=== PATIENT | male | born 1990 | race Caucasian/White ===

== ENCOUNTER 2021-07-07 13:09 | Emergency (ER) | payer MEDICAID, OTHER, SELFPAY ==
[2021-07-07 14:56] VITALS: BP 140/91; PULSE 83; RESP 18; TEMP 37.3; O2SAT 98; BMI 24.4
[2021-07-07 17:38] LABS: Basophils Percent Auto 0.2 % (0-2); Eosinophils Absolute Auto 0.1 X10*3/uL (0.0-0.4); Eosinophils Percent Auto 0.9 % (0-4); Hematocrit 44.8 % (42.0-52.0); Imm Gran Abs Auto 0.01 X10*3/uL (0.00-0.03); Imm Gran Pct Auto 0.2 % (0.0-0.4); Lymphocytes Absolute Auto 0.9 X10*3/uL (1.2-4.9); Lymphocytes Percent Auto 16.7 % (20-40); MANUAL DIFF FLAG NO; Mean Corpuscular HGB Conc 33.5 g/dl (31.0-36.0); Mean Corpuscular Hemoglobin 29.3 pg (27.0-33.0); Mean Corpuscular Volume 87.5 fL (80.0-98.0); Mean Platelet Volume 8.8 fL (9.4-12.4); Monocytes Absolute Auto 0.5 X10*3/uL (0.1-1.2); Neutrophils Absolute Auto 3.9 x10*3/uL (2.0-8.3); Platelet Count 261 X10*3/uL (160-400); Red Blood Count 5.12 X10*6/uL (4.60-5.80); Red Cell Distribution Width 13.1 % (11.0-16.0); White Blood Count 5.3 X10*3/uL (4.8-10.8)
[2021-07-07 17:43] LABS: Appearance Urine CLEAR; Color Urine STRAW; Glucose Urine UA NEG (NEG); Leukocyte Esterase Urine NEG (NEG); Nitrite Urine NEG (NEG); PH 5.5 (5.0-8.0); Specific Gravity - Urine 1.015 (1.005-1.025); UACC Culture Trigger NO; Urine Blood TRACE (NEG); Urine Ketones NEG (NEG); Urine Protein NEG (NEG-TRACE)
[2021-07-07 17:52] LABS: Alanine Aminotransferase 48 U/L (0-40); Albumin Level 4.4 g/dL (3.5-5.0); Alkaline Phosphatase 74 U/L (39-117); Anion Gap 11 (12-20); Aspartate Amino Transferase 22 U/L (5-37); Bilirubin Total 0.4 mg/dL (0.0-1.0); Blood Urea Nitrogen 10 mg/dL (9-16); Calcium 9.1 mg/dL (8.4-10.2); Carbon Dioxide 29 mmol/L (22-29); Chloride 103 mmol/L (96-108); Estimated Glomerular Filt Rate > 60; Glucose Random 95 mg/dL (60-115); Potassium 4.4 mmol/L (3.3-5.1); Sodium 139 mmol/L (135-145); Total Protein 7.4 g/dL (6.5-8.0)
[2021-07-07 17:53] LABS: COVID-19 Test Negative (Negative); IDNOW Serial# 55D5AD1C
[2021-07-07 18:02] LABS: Hyaline Casts Urine 0-2 /LPF; RBC Urine 0 /HPF (0); Squamous Epithelial Cell Urine TRACE /LPF; WBC Urine 0 /HPF (0-4)
[2021-07-07 20:14] VITALS: BP 147/96; PULSE 77; RESP 18; TEMP 36.8; O2SAT 100
--- NOTE | 2021-07-07 20:16 | PC.NURSE ---
remains in WR. c/o abd distention and frequent watery diarrhea. q 20 minutes. moist mm. skin PWD.
[2021-07-07] MEDS: Ondansetron ODT 4 MG TAB.RAPDIS TRANSLINGU (20:19)
--- NOTE | 2021-07-07 20:57 | ED.NAVMDI ---
HPI - Nausea/Vomiting/Diarrhea General Chief complaint: Nausea/Vomiting/Diarrhea Stated complaint: vomiting Time Seen by Provider: 07/07/21 17:45 Source: patient Mode of arrival: ambulatory Limitations: no limitations History of Present Illness HPI Narrative: Patient had started 2 days ago since then patient has been having nausea vomiting and diarrhea multiple times with abdominal cramps, had subjective fever and chills no blood in the stool no urinary complaints Related Data Previous Rx's Medication Instructions Recorded dicyclomine 20 mg tablet 20 mg PO QID PRN #20 tab 07/07/21 ondansetron 4 mg disintegrating 4 mg PO Q6-8H PRN #7 tab 07/07/21 tablet Allergies Allergy/AdvReac Type Severity Reaction Status Date / Time No Known Allergies Allergy Verified 07/07/21 14:59 [No Known Allergies*] Review of Systems Review of Systems: Yes all other systems are reviewed and are negative [facility] Social History Social History Advance Directives: No Advance Directives Information Provided: No Advance Directives on File: No Physical Exam Vital Signs: Vital Signs: Last Vital Signs Temp 98.6 F 07/07/21 22:13 Pulse 60 07/07/21 22:13 Resp 16 07/07/21 22:13 BP 157/96 H 07/07/21 22:13 Pulse Ox 100 07/07/21 22:13 BMI result Body Mass Index 24.4 Appearance: Alert. Oriented X3. No acute distress. Eyes: PERRLA, No Nystagmus ENT: Pharynx normal. Oral Mucosa moist Neck: Normal inspection. Neck supple. CVS: Normal heart rate and rhythm. Pulses normal. Respiratory: No respiratory distress. Equal air entry bilateral, no wheezing/rales/rhonchi Abdomen: Soft diffuse abdominal tenderness no rebound tenderness or guarding Bowel sounds are present, no mass palpable, no CVA tenderness Skin: Skin warm and dry. Normal skin color. Normal skin turgor. Extremities: No lower extremity edema. No calf tenderness Neuro: Oriented X 3. MDM - Nausea/Vomiting/Diarrhea MDM Narrative Medical decision making narrative: Patient with stable labs likely had food poisoning with gastroenteritis no vomiting or diarrhea in the ER will discharge patient home on dicyclomine and Zofran Lab Data Attestation: I reviewed the patient's lab results. Result diagrams: 07/07/21 17:28 07/07/21 17:28 Labs: Lab Results 07/07/21 07/07/21 07/07/21 Range/Units 17:28 17:28 17:28 WBC 5.3 (4.8-10.8) X10*3/uL RBC 5.12 (4.60-5.80) X10*6/uL Hgb 15.0 (14.0-18.0) g/dl Hct 44.8 (42.0-52.0) % MCV 87.5 (80.0-98.0) fL MCH 29.3 (27.0-33.0) pg MCHC 33.5 (31.0-36.0) g/dl RDW 13.1 (11.0-16.0) % Plt Count 261 (160-400) X10*3/uL MPV 8.8 L (9.4-12.4) fL Immature Gran % (Auto) 0.2 (0.0-0.4) % Neut % (Auto) 73.0 (45-73) % Lymph % (Auto) 16.7 L (20-40) % [place] % (Auto) 9.0 (2-11) % Eos % (Auto) 0.9 (0-4) % Baso % (Auto) 0.2 (0-2) % Lymph # (Auto) 0.9 L (1.2-4.9) X10*3/uL [place] # (Auto) 0.5 (0.1-1.2) X10*3/uL Eos # (Auto) 0.1 (0.0-0.4) X10*3/uL Baso # (Auto) 0.0 (0.0-0.2) X10*3/uL Abs Immat Gran (auto) 0.01 (0.00-0.03) X10*3/uL Absolute Neuts (auto) 3.9 (2.0-8.3) x10*3/uL Absolute Nucleated RBC 0.000 (0.0-0.012) X10*3/uL Nucleated RBC % (auto) 0.0 (0.0-0.2) /100WBC Sodium 139 (135-145) mmol/L Potassium 4.4 (3.3-5.1) mmol/L Chloride 103 (96-108) mmol/L Carbon Dioxide 29 (22-29) mmol/L Anion Gap 11 L (12-20) BUN 10 (9-16) mg/dL Creatinine 1.16 (0.5-1.4) mg/dL Estim Creat Clear Calc 104.0 Estimated GFR > 60 Random Glucose 95 (60-115) mg/dL Calcium 9.1 (8.4-10.2) mg/dL Total Bilirubin 0.4 (0.0-1.0) mg/dL AST 22 (5-37) U/L ALT 48 H (0-40) U/L Alkaline Phosphatase 74 (39-117) U/L Total Protein 7.4 (6.5-8.0) g/dL Albumin 4.4 (3.5-5.0) g/dL Urine Color Urine Appearance Urine pH (5.0-8.0) Ur Specific [place] (1.005-1.025) Urine Protein (NEG-TRACE) MG/DL Urine Glucose (UA) (NEG) MG/DL Urine Ketones (NEG) MG/DL Urine Blood (NEG) Urine Nitrite (NEG) Ur Leukocyte Esterase (NEG) Urine RBC (0) /HPF Urine WBC (0-4) /HPF Ur Squamous Epith Cells /LPF Urine Bacteria /LPF Hyaline Casts /LPF COVID-19 (SERGIO) Negative (Negative) COVID-19 Clin Com See Note 07/07/21 Range/Units 17:32 WBC (4.8-10.8) X10*3/uL RBC (4.60-5.80) X10*6/uL Hgb (14.0-18.0) g/dl Hct (42.0-52.0) % MCV (80.0-98.0) fL MCH (27.0-33.0) pg MCHC (31.0-36.0) g/dl RDW (11.0-16.0) % Plt Count (160-400) X10*3/uL MPV (9.4-12.4) fL Immature Gran % (Auto) (0.0-0.4) % Neut % (Auto) (45-73) % Lymph % (Auto) (20-40) % [place] % (Auto) (2-11) % Eos % (Auto) (0-4) % Baso % (Auto) (0-2) % Lymph # (Auto) (1.2-4.9) X10*3/uL [place] # (Auto) (0.1-1.2) X10*3/uL Eos # (Auto) (0.0-0.4) X10*3/uL Baso # (Auto) (0.0-0.2) X10*3/uL Abs Immat Gran (auto) (0.00-0.03) X10*3/uL Absolute Neuts (auto) (2.0-8.3) x10*3/uL Absolute Nucleated RBC (0.0-0.012) X10*3/uL Nucleated RBC % (auto) (0.0-0.2) /100WBC Sodium (135-145) mmol/L Potassium (3.3-5.1) mmol/L Chloride (96-108) mmol/L Carbon Dioxide (22-29) mmol/L Anion Gap (12-20) BUN (9-16) mg/dL Creatinine (0.5-1.4) mg/dL Estim Creat Clear Calc Estimated GFR Random Glucose (60-115) mg/dL Calcium (8.4-10.2) mg/dL Total Bilirubin (0.0-1.0) mg/dL AST (5-37) U/L ALT (0-40) U/L Alkaline Phosphatase (39-117) U/L Total Protein (6.5-8.0) g/dL Albumin (3.5-5.0) g/dL Urine Color STRAW Urine Appearance CLEAR Urine pH 5.5 (5.0-8.0) Ur Specific [place] 1.015 (1.005-1.025) Urine Protein NEG (NEG-TRACE) MG/DL Urine Glucose (UA) NEG (NEG) MG/DL Urine Ketones NEG (NEG) MG/DL Urine Blood TRACE (NEG) Urine Nitrite NEG (NEG) Ur Leukocyte Esterase NEG (NEG) Urine RBC 0 (0) /HPF Urine WBC 0 (0-4) /HPF Ur Squamous Epith Cells TRACE /LPF Urine Bacteria NONE /LPF Hyaline Casts 0-2 /LPF COVID-19 (SERGIO) (Negative) COVID-19 Clin Com Discharge Plan Discharge Clinical Impression: Gastroenteritis Patient Disposition: Home, Self-Care Instructions: Gastroenteritis (ED) Additional Instructions: Drink plenty of fluids Take medication for the nausea and abdominal cramps Follow-up with the PCP if not better Prescriptions: New dicyclomine 20 mg tablet 20 mg PO QID PRN (Reason: abdominal pain) Qty: 20 0RF ondansetron 4 mg tablet,disintegrating 4 mg PO Q6-8H PRN (Reason: nausea and vomiting) Qty: 7 0RF Interventions: ED Discharge Assessment Last Done: 07/07/21 23:02 Discharge Date/Time: 07/07/21 23:15
[2021-07-07] MEDS: Dicyclomine HCl 10 MG CAPSULE 20 MG PO (21:17)
[2021-07-07] MEDS: Loperamide HCl 2 MG CAPSULE 4 MG PO (21:17)
[2021-07-07 22:13] VITALS: BP 157/96; PULSE 60; RESP 16; TEMP 37; O2SAT 100
== END 2021-07-07 23:15 | disposition home or self-care (01) ==
PROVIDERS: Emergency Provider Internal Medicine; PCP Internal Medicine
DX: K52.9 Noninfective gastroenteritis and colitis, unspecified (principal); R11.2 Nausea with vomiting, unspecified; Z20.822 Contact with and (suspected) exposure to COVID-19; Z79.899 Other long term (current) drug therapy
CPT/HCPCS: 80053; 81001; 85025; 87635; 99283

== ENCOUNTER 2023-06-25 14:04 | Outpatient (REF) | payer MEDICAID, OTHER, SELFPAY ==
[2023-06-25 16:26] LABS: Anion Gap 14 (12-20); Blood Urea Nitrogen 16 mg/dL (9-16); Calcium 9.7 mg/dL (8.4-10.2); Carbon Dioxide 28 mmol/L (22-29); Chloride 102 mmol/L (96-108); Estimated Glomerular Filt Rate > 60; Glucose Random 64 mg/dL (60-115); Potassium 3.9 mmol/L (3.3-5.1); Sodium 140 mmol/L (135-145)
[2023-06-26 14:07] LABS: CT PCR DETECTED (Not Detect.); NG PCR NOT DETECTED (Not Detect.)
== END 2023-06-25 14:05 | disposition home or self-care (01) ==
LOC: HO.HHCL 14:04
PROVIDERS: Visit Provider Emergency Medicine
DX: R03.0 Elevated blood-pressure reading, without diagnosis of hypertension (principal); Z86.19 Personal history of other infectious and parasitic diseases
CPT/HCPCS: 0353U; 36415; 80048; 87086

== ENCOUNTER 2023-07-06 10:52 | Outpatient (REF) | payer MEDICAID, OTHER, SELFPAY ==
[2023-07-06 14:07] LABS: Estimated Average Glucose 105 mg/dL; Hemoglobin A1c % 5.3 % (<6.0)
[2023-07-06 14:08] LABS: Alanine Aminotransferase 89 U/L (0-40); Albumin Level 4.4 g/dL (3.5-5.0); Alkaline Phosphatase 82 U/L (39-117); Anion Gap 12 (12-20); Aspartate Amino Transferase 39 U/L (5-37); Bilirubin Total 0.5 mg/dL (0.0-1.0); Blood Urea Nitrogen 12 mg/dL (9-16); Calcium 9.4 mg/dL (8.4-10.2); Carbon Dioxide 29 mmol/L (22-29); Chloride 102 mmol/L (96-108); Cholesterol 238 mg/dL (<200); Estimated Glomerular Filt Rate > 60; Glucose Random 93 mg/dL (60-115); HDL Cholesterol 55 mg/dL (>40); LDL Cholesterol Calculated 131 mg/dL (<100); Potassium 3.9 mmol/L (3.3-5.1); Sodium 139 mmol/L (135-145); Total Protein 7.9 g/dL (6.5-8.0); Triglycerides 262 mg/dL (<150)
[2023-07-06 14:11] LABS: TSH reflex Free T4 2.67 uIU/mL (0.32-4.0)
[2023-07-06 15:57] LABS: Reflex LDLD? No
== END 2023-07-06 10:53 | disposition home or self-care (01) ==
LOC: HO.HHCL 10:52
PROVIDERS: Visit Provider Family Medicine
DX: R03.0 Elevated blood-pressure reading, without diagnosis of hypertension (principal); E78.2 Mixed hyperlipidemia
CPT/HCPCS: 36415; 80053; 80061; 83036; 84443

== ENCOUNTER 2024-03-08 16:39 | Outpatient (REF) | payer MEDICAID, OTHER, SELFPAY ==
[2024-03-17 00:14] LABS: HPV MRNA E6/E7 Rectal NOT DETECTED
== END 2024-03-08 16:40 | disposition home or self-care (01) ==
LOC: HO.HHCLNP 16:39
PROVIDERS: Visit Provider Family Medicine
DX: Z72.51 High risk heterosexual behavior (principal)
CPT/HCPCS: 36415; 87624; 88112

== ENCOUNTER 2024-04-25 11:47 | Outpatient (REF) | payer MEDICAID, OTHER, SELFPAY ==
[2024-04-25 13:57] LABS: HPV 16,18/45 See PAP report
[2024-04-25 14:21] LABS: Estimated Average Glucose 108 mg/dL; Hemoglobin A1C 141.3086 umol/L; Hemoglobin A1c % 5.4 % (<6.0); Total Hemoglobin (HGBA1C) 4014.6583 umol/L
[2024-04-25 14:32] LABS: Alanine Aminotransferase 90 U/L (0-40); Albumin Level 4.4 g/dL (3.5-5.0); Alkaline Phosphatase 83 U/L (39-117); Anion Gap 10 (12-20); Aspartate Amino Transferase 42 U/L (5-37); Bilirubin Total 0.7 mg/dL (0.0-1.0); Blood Urea Nitrogen 13 mg/dL (9-16); Calcium 9.2 mg/dL (8.4-10.2); Carbon Dioxide 32 mmol/L (22-29); Chloride 102 mmol/L (96-108); Cholesterol 225 mg/dL (<200); Estimated Glomerular Filt Rate > 60; Glucose Random 97 mg/dL (60-115); HDL Cholesterol 54 mg/dL (>40); LDL Cholesterol Calculated 115 mg/dL (<100); Potassium 4.1 mmol/L (3.3-5.1); Sodium 140 mmol/L (135-145); Total Protein 7.7 g/dL (6.5-8.0); Triglycerides 280 mg/dL (<150)
[2024-04-25 14:49] LABS: TSH reflex Free T4 3.24 uIU/mL (0.32-4.0)
[2024-04-25 21:48] LABS: Reflex LDLD? No
[2024-04-25 22:31] LABS: Creatinine Urine 332.24 mg/dL; Microalbum/Creatinine Ratio Ur 12.6 ug/mg cr (<30)
[2024-04-26 13:23] LABS: HIV RNA PCR Qn Copies NOT DETECTED copies/mL (NOT DETECTED); HIV RNA PCR Qn Log Copies NOT DETECTED (NOT DETECTED)
[2024-04-26 14:33] LABS: HCV Log PCR <1.18 NOT DETECTED Log IU/mL (NOT DETECTED); HepC Viral Load <15 NOT DETECTED IU/mL (NOT DETECTED)
[2024-04-28 14:01] LABS: Syphilis Screen Nonreactive (Nonreactive)
[2024-04-28 14:35] LABS: HIV AB/AG Nonreactive (Nonreactive); HIV Num 1 0.05 S/CO (0.00-0.99); ~HepC Num1 0.11 S/CO (0.00-0.79); ~Hepatitis C Antibody Nonreactive (Nonreactive)
[2024-04-28 14:58] LABS: RPR Rapid Plasma Reagin NON-REACTIVE (NON-REACTIVE)
== END 2024-04-25 11:48 | disposition home or self-care (01) ==
LOC: HO.HHCL 11:47
PROVIDERS: Visit Provider Family Medicine
DX: R03.0 Elevated blood-pressure reading, without diagnosis of hypertension (principal); Z13.1 Encounter for screening for diabetes mellitus; Z11.3 Encounter for screening for infections with a predominantly sexual mode of transmission; Z83.49 Family history of other endocrine, nutritional and metabolic diseases; Z83.3 Family history of diabetes mellitus; Z72.51 High risk heterosexual behavior
CPT/HCPCS: 36415; 80053; 80061; 82043; 82570; 83036; 84443; 86592; 86780; 86803; 87389; 87522; 87536; 87624

== ENCOUNTER 2024-05-30 09:01 | Outpatient (REF) | payer OTHER, SELFPAY ==
--- NOTE | ~2024-05-30 | US_ITS ---
CLINICAL HISTORY: transaminitis US abdomen complete Comparison: None Findings: The visualized pancreas is normal. The aorta and inferior vena cava are normal caliber. The liver is normal in size and increased in echotexture with likely fatty sparing adjacent to the gallbladder. There is no intrahepatic bile duct dilatation. The common duct is 5 mm in diameter. The gallbladder is normal. There is no sonographic Cobb sign. The main portal vein is antegrade. The right kidney is 10.1 cm in length. The left kidney is 10.5 cm in length. The spleen is normal. No ascites. IMPRESSION: 1. increased hepatic echogenicity may indicate steatosis. This document has been electronically signed by: Henry Landaverde MD on 05/31/2024 10:44:55
--- OUTSIDE RECORDS SUMMARY | 2024-05-30 13:22 | XMS_ITS | Encounter Summary ---
Author Organization [employer] [facility] Address [address] 7[address] [place] [address] Care Team Providers Care Public Relations Supervisor Name Role Phone Alexandra Morgan MD Primary Care Provider [phone] Reason for Visit * Reason Comments Med Refill Encounter Details Date Type Department Care Team (Late st Contact Info) Description 01/22/2023 Refill [facility] [address] [place], [place] [phone] Alexandra Morgan MD [address] [place], [place] [phone] On pre-exposure prophylaxis for HIV Social History Tobacco Use Types Packs/Day Years Used Date Smoking Tobacco: Never Assessed Sex and Gender Information Value Date Recorded Sex Assigned at Male 03/03/2022 10:21 AM EDT Legal Sex Male 10:21 AM EDT Gender Identity Male 03/03/2022 10:21 AM EDT Sexual Orientation Lesbian or [place] 03/03/2022 10 :21 AM EDT documented as of this encounter Plan of Treatment Not on file documented as of this encounter Visit Diagnoses Diagnosis On pre-exposure prophylaxis for HIV documented in this encounter Care Teams Public Relations Supervisor Relationship Specialty Start Date End Date Alexandra Morgan MD [address] [place], [place] [phone] PCP - General Family Medicine 01/09/22 documented as of this encounter
--- OUTSIDE RECORDS SUMMARY | 2024-05-30 13:22 | XMS_ITS | Encounter Summary ---
Author Organization [employer] [facility] Address [address] [facility] [facility] [address]t [place] [address] Care Team Providers Care Talent Program Manager Name Role Phone Alexandra Morgan MD Primary Care Provider [phone] Reason for Visit * Reason Comments Med Refill Encounter Details Date Type Department Care Team (Late st Contact Info) Description 10/14/2022 Refill [facility] [address] [place], [place] [phone] Alexandra Morgan MD [address] [place], [place] [phone] On pre-exposure prophylaxis for HIV Social History [...] HIV documented in this encounter Care Teams Talent Program Manager Relationship Specialty Start Date End Date Alexandra Morgan MD [address] [place], [place] [phone] PCP - General Family Medicine 01/09/22 documented as of this encounter
--- OUTSIDE RECORDS SUMMARY | 2024-05-30 13:22 | XMS_ITS | Encounter Summary ---
Author Organization [employer] [facility] Address [address] [facility] [address]t [place] [address] Care Team Providers Care Chief Executive Or Managing Director Name Role Phone Alexandra Morgan MD Primary Care Provider [phone] Encounter Details Date Type Department Care Team (Latest Contact Info) Description 05/06/2018 Abstract [facility] CONVERSIONS Dental, Provider, DDS Social History Tobacco Use Types Packs/Day Years [...] documented as of this encounter Visit Diagnoses Not on filedocumented in this encounter Care Teams Chief Executive Or Managing Director Relationship Specialty Start Date End Date Alexandra Morgan MD [address] [place] [id number] PCP - General Family Medicine 01/09/22 documented as of this encounter
--- OUTSIDE RECORDS SUMMARY | 2024-05-30 13:23 | XMS_ITS | Encounter Summary ---
Author Organization [employer] Address [address] [facility] [address] [place] [address] Care Team Providers Care Assistant Professor Of English Name Role Phone Alexandra Morgan MD Primary Care Provider [phone] Encounter Details Date Type Department Care Team (Late st Contact Info) Description 11/05/2023 Orders Only [facility] [address] [place], [place] [phone] Alexandra Morgan MD [address] [place], [place] [phone] On pre-exposure prophylaxis for HIV Social History Tobacco Use Types Packs/Day Years Used Date Smoking Tobacco: Never Passive Smoke Exposure: Never Smokeless Tobacco: Never Housing Stability Answer Date Recorded What is your housing situation today? I have lara pierce 06/29/[address] you li ve. Do you have problems with any of the following? None of the above 06/29/2023 Food Insecurity Answer Date Recorded Within the past 12 months, y ou worried that your food would run out before you got money to buy more: Never True 06/29/2023 Within the past 12 months,th e food you bought just didn't last and you didn't have enough money to get more: Never True Transportation Answer Date Recorded In the past 12 months, has l ack of transportation kept you from medical appts, meetings, work or from getting things needed for daily living? No 06/29/2023 Utilities Answer Date Recorded In the past 12 months, has t he electric, gas, oil or water company threatened to shut off services in your home? No 06/29/2023 Sex and Gender Information Value Date Recorded [...] HIV documented in this encounter Care Teams Assistant Professor Of English Relationship Specialty Start Date End Date Alexandra Morgan MD [address] [place] [id number] PCP - General Family Medicine 01/09/22 documented as of this encounter
--- OUTSIDE RECORDS SUMMARY | 2024-05-30 13:23 | XMS_ITS | Encounter Summary ---
Author Organization [employer] [facility] Address [address] [facility] [address]t [place] [address] Care Team Providers Care Generator Technician Name Role Phone Alexandra Morgan MD Primary Care Provider [phone] Reason for Referral * Imaging (Routine) - Authorized Specialty Diagnoses / Procedures Referred By Shea pablo Referred To Contact Radiology Diagnoses Transaminitis Procedures US Abdomen Complete Alexandra Morgan MD [address] [place] [address] Phone: tel: fax: [address] Phone: tel: fax: Referral ID Status Reason Start Date Expiration Date V isits Requested Visits Authorized [id number] Authorized 04/28/2024 04/28/2025 1 1 Encounter Details Date Type Department Care Team (Late st Contact Info) Description 04/28/2024 Orders Only [facility] [address] [place], [place] [phone] Alexandra Morgan MD [address] [place], [place] [phone] Transaminitis (Primary Dx) Social History Tobacco Use Types Packs/Day Years Used Date Smoking Tobacco: Never Passive Smoke Exposure: Never Smokeless Tobacco: Never Alcohol Use Standard Drinks/Week Comments Never 0 (1 standard drink = 0.6 oz pur e alcohol) Housing Stability Answer Date Recorded What is [...] 10:21 AM EDT Sexual Orientation Lesbian or [place] 03/03/2022 10 :21 AM EDT documented as of this encounter Plan of Treatment Scheduled Orders Name Type Priority Associated Diagnoses Orde r Schedule Helicobacter pylori??Antigen, EIA, Stool Lab Routine Transaminitis Expected: 04/28/2024 (Approximate), Expires: 04/28/2025 US Abdomen Complete Imaging Routine Transaminitis Expected: 04/28/2024, Expires: 04/28/2025 documented as of this encounter Visit Diagnoses Diagnosis Transaminitis- Primary Nonspecific elevation of levels of transaminase or lactic acid dehydrogenase (LDH) documented in this encounter Care Teams Generator Technician Relationship Specialty Start Date End Date Alexandra Morgan MD [address] [place] [id number] PCP - General Family Medicine 01/09/22 documented as of this encounter
--- OUTSIDE RECORDS SUMMARY | 2024-05-30 13:23 | XMS_ITS | Encounter Summary ---
Author Organization [employer] Address [address] [place] [address] Care Team Providers Care State Highway Police Officer Name Role Phone Alexandra Morgan MD Primary Care Provider [phone] Encounter Details Date Type Department Care Team (Late st Contact Info) Description 01/28/2024 Orders Only [facility] [address] [place], [place] [phone] Alexandra Morgan MD [address] [place], [place] [phone] On pre-exposure prophylaxis for HIV (Primary Dx) Social History Tobacco Use Types [...] Visit Diagnoses Diagnosis On pre-exposure prophylaxis for HIV- Primary documented in this encounter Care Teams State [employer] Police Officer Relationship Specialty Start Date End Date Alexandra Morgan MD [address] [place] [id number] PCP - General Family Medicine 01/09/22 documented as of this encounter
--- OUTSIDE RECORDS SUMMARY | 2024-05-30 13:23 | XMS_ITS | Encounter Summary ---
Author Organization [employer] [facility] Address [address] [place] [address] Care Team Providers Care Clay Press Operator Name Role Phone Alexandra Morgan MD Primary Care Provider [phone] Encounter Details Date Type Department Care Team (Late st Contact Info) Description 05/11/2024 Telephone [facility] [address] [place], [place] [phone] Bo Manzo RN [address] [place] [address] Social History Tobacco Use Types Packs/Day Years [...] AM EDT documented as of this encounter Miscellaneous Notes * Telephone Encounter - Bo Manzo RN - 05/11/2024 9:36 AM EST To enter DPH STI results documented in this encounter Plan of Treatment Not on file documented as of this encounter Procedures Procedure Name Priority Date/Time Associated Diagnosis Comments CHLAMYDIA/GONORRHEA RECTAL SWAB ([place] [facility]) Routine 04/26/2024 CHLAMYDIA/GONORRHEA THROAT SWAB ([place] [facility]) Routine 04/26/2024 CHLAMYDIA/GONORRHEA - URINE ([place] [facility]) Routine 04/26/2024 documented in this encounter Results * Chlamydia/Gonorrhea, Urine ([place] [facility]) (04/26/2024) Chlamydia, Urine Negative Negative, Indeterminate, None Detected, Invalid, Specimen unsatisfactory for evaluation, Weakly Positive Gonorrhea, Urine Negative Negative, Indeterminate, None Detected, Invalid, Specimen unsatisfactory for evaluation, Weakly Positive Urine 04/26/2024 Historical Provider LAB URINE ORDERABLES Allyson l Result * Chlamydia/Gonorrhea, Rectal Swab ([place] [facility]) (04/26/2024) Chlamydia Rectal Swab Negative Negative, Indeterminate, None Detected, Invalid, Specimen unsatisfactory for evaluation Gonorrhea Rectal Swab Negative Negative, Indeterminate, None Detected, Invalid, Specimen unsatisfactory for evaluation Swab 04/26/2024 Historical Provider LAB MICROBIOLOGY - GENERA L ORDERABLES Final Result * Chlamydia/Gonorrhea Throat Swab ([place] [facility]) (04/26/2024) Chlamydia Throat Swab Negative Gonorrhea Throat Swab Negative Swab 04/26/2024 us Historical Provider LAB MICROBIOLOGY - GENERA L ORDERABLES Final Result documented in this encounter Visit Diagnoses Not on filedocumented in this encounter Care Teams Clay Press Operator Relationship Specialty Start Date End Date Alexandra Morgan MD [address] [place] [address] PCP - General Family Medicine 01/09/22 documented as of this encounter
--- OUTSIDE RECORDS SUMMARY | 2024-05-30 13:23 | XMS_ITS | Clinical Summary ---
Author Organization [facility] Address [address] [place] [address] Care Team Providers [employer] Customer Experience Advisor Name Role Phone Alexandra Morgan MD Primary Care Provider [phone] Allergies No known active allergies Medications Blood Pressure Monitoring (Omron 3 Series BP Monitor) device USE TO CHECK BLOOD PRESSURE DIRECTED 2 Active ibuprofen 400 MG tablet Take 1 tablet (400 mg) by mouth every 6 (six) hours if needed for moderate pain or fever for up to 30 doses. 30 tablet 4 Active doxycycline (Vibramycin) 100 MG capsule Take 2 pills within 24 hours (preferably 24 hours but no later than 72 hours) after unprotected (condomless or broken condom) sex. 50 capsule 1 4 Active Descovy 200-25 MG tabletIndication s:On pre-exposure prophylaxis for HIV TAKE 1 TABLET EVERY MORNING 30 tablet 2 4 Active Active Problems Problem Noted Date Diagnosed Date Elevated blood pressure reading 07/06/2023 Assessment & Plan (03/13/2024 6:51 PM EST): -Goal BP < 140/90 per JNC-8 and < 130/80 per ACC/AHA guideline (Treatment threshold >= 140/90) -Elevated, normal BP at home per pt -Continue working on lifestyle modifications -Recommended self-monitoring BP. -Schedule a BP check visit with our nurse. If home BP has been > 140/90 or office BP is > 145/95 again, then start olmesartan 10 mg daily, telmesartan 20 mg daily, valsartan 40 mg daily, or losartan 25 mg daily. - Given his family history, consider evaluating with US. Assessment & Plan (07/06/2023 2:58 PM EST): -Goal BP < 140/90 per JNC-8 and < 130/80 per ACC/AHA guideline (Treatment threshold >= 140/90) -Borderline range -Continue working on lifestyle modifications -Recommended self-monitoring BP. Advised to call if home BP is persistently > 140/90 so that we can start a medication -Follow up in 3-6 mo, sooner if any problem arises Family history of diabetes mellitus 07/06/2023 Family history of thyroid disease 07/06/2023 H/O chlamydia infection 06/25/2023 Assessment & Plan (03/13/2024 6:56 PM EST): - 06/25/23 Chlamydia positive; Gonorrhea negative - treated with doxycycline and given ceftriaxone - continue safer sexual practice - PEP discussion today # DoxyPEP, Initial Conversation Discussed role of Doxy PEP in preventing bacterial STIs. Conversation was started by: Patient meets risk based on: Assign Male At , >=18yo - plus - Shared decision making: Hx of chlamydia Patient agrees to utilize DoxyPEP. .Patient meets criteria for benefiting from Doxycycline for Post-Exposure Prophylaxis (DoxyPEP) for CT/GC/Syphilis. - Discussed data which supports prevention of chlamydia and syphilis, with limited data on Gonorrhea and ABX resistance. - Rx'ed Doxy PO 200mg once within 72 hours of sexual activity (#50 RF1) - Follow up in 3 months Assessment & Plan (07/06/2023 3:00 PM EST): - 06/25/23 Chlamydia positive; Gonorrhea negative - treated with doxycycline and given ceftriaxone - continue safer sexual practice Mixed hyperlipidemia 06/09/2022 Assessment & Plan (03/13/2024 6:54 PM EST): - 03/26/22 TC 281; TG 263; HDL 52; LDL 182 - continue working on lifestyle modifications Assessment & Plan (07/06/2023 3:00 PM EST): - 03/26/22 TC 281; TG 263; HDL 52; LDL 182 - continue working on lifestyle modifications Assessment & Plan (06/09/2022 9:01 AM EST): - 03/26/22 TC 281; TG 263; HDL 52; LDL 182 - continue working on lifestyle modifications On pre-exposure prophylaxis for HIV 06/09/2022 Assessment & Plan (03/13/2024 6:53 PM EST): - on Descovy - last renal function test normal in Mar 2022 - Chlamydia Dx and Tx in Jun 2023 - last STI screening test in Jan 2024 at [facility] negative - discussed about PEP Assessment & Plan (07/06/2023 3:01 PM EST): - on Descovy - last renal function test normal in Mar 2022 - Chlamydia Dx and Tx in Jun 2023 Assessment & Plan (06/09/2022 4:13 PM EST): - on Descovy - last STI screening negative in Dec 2021 - last renal function test normal in Mar 2022 Vitiligo 03/07/2013 Encounters Date Type Department Care Team Description 05/11/[address] [address] Bo Manzo, DANIEL 04/28/[address] [address] Nasreen Pinto, RN Results 04/28/2024 Orders Only [address] [address] Alexandra Morgan MD Transaminitis (Primary Dx) 04/28/2024 Refill [facility] [address] [place] [address] Alexandra Morgan MD On pre-exposure prophylaxis for HIV 04/25/2024 Orders Only [facility] [address] [place] [address] Alexandra Morgan MD 04/20/2024 Orders Only [facility] [address] [place] [address] Marissa Alva, DANIEL Screening for STD (sexually transmitted disease) 03/09/2024 Orders Only [address] [address] Alexandra Morgan MD 03/08/2024 2:30 PM EST Procedure Visit [facility] [address] [place] [address] Alexandra Morgan MD On pre-exposure prophylaxis for HIV (Primary Dx); Elevated blood pressure reading; High risk sexual behavior, unspecified type; Screening for diabetes mellitus; Dyslipidemia; Family history of diabetes mellitus; Family history of thyroid disease; Encounter for immunization; H/O chlamydia infection; Mixed hyperlipidemia; Dietary counseling; Exercise counseling; Overweight 03/08/2024 Orders Only [facility] [address] [place] [address] Alexandra Morgan MD 03/08/2024 Travel from Last 3 Months Immunizations Name Administration Dates Next Due HPV, Quadrivalent 03/28/2013,08/04/2011,07/01/19 12 Hep A, ped/adol, 2 dose 05/27/2010,10/29/2009 Hep B, Adolescent or Pediatric 03/04/2010,2009,10/29/2009 IPV 03/04/2010, 0,01/01/2010,2009 Influenza injectable quadriv alent preservative free 04/12/2015 Influenza, IIV3, injectable 10/29/2009 Influenza, seasonal, injecta ble, preservative free 03/08/2024 MMR 01/01/2010,10/29/2009 Pfizer Covid-19 Vaccine 12+ 03/08/2024, 4 TD (adult), 2 Lf tetanus tox oid, preservative free, adsorbed 05/27/2010,01/01/2010 Tdap 07/06/2023,05/12/2011,10/29/2009 Varicella 01/01/2010,10/29/2009 Family History Medical History Relation Name Comments Diabetes type II Mother Diabetes type II Other maternal aunt Relation Name Status Comments Mother Alive Other maternal aunt Social History Tobacco Use Types Packs/Day Years [...] or [place] 03/03/2022 10 :21 AM EDT Last Filed Vital Signs Vital Sign Reading Time Taken Comments Blood Pressure 150/88 03/08/2024 2:58 PM EST Pulse 88 03/08/2024 2:26 PM EST Temperature 36.3 ??C (97.3 ??F) 03/08/2024 2:26 PM ES T Respiratory Rate 16 03/08/2024 2:26 PM EST Oxygen Saturation 98% 03/08/2024 2:26 PM EST Inhaled Oxygen Concentration - - Weight 86.6 kg (191 lb) 03/08/2024 2:26 PM EST Height 182.9 cm (6') 03/08/2024 2:26 PM EST Body Mass Index 25.9 03/08/2024 2:26 PM EST Plan of Treatment Health Maintenance Due Date Last Done Comments Depression Screening 1990 Alcohol/Substance Use Screening 2004 Family Planning (PISQ) 11/13/2007 IPV Vaccines (4 of 4 - 5-dose series) 09/01/2010 03/04/2010, 01/31/2010, 01/01/2010, Additional history exists SDOH Screening 06/29/2024 06/29/2023 Tobacco Screening 03/13/2025 03/13/2024 DTaP/Tdap/Td Vaccines (5 - Td or Tdap) 07/05/2033 07/06/2023, 05/12/2011, 05/27/2010, Additional history exists Zoster Vaccines (1 of 2) 2042 RSV Patients and Patients Aged 60 years or older (1 - 1-dose 75+ series) 11/13/2067 Hepatitis B Vaccines Completed 03/04/2010, 01/01/2010, 10/29/2009 Hepatitis A Vaccines Completed 05/27/2010, 10/30/19 10 HPV Vaccines Completed 03/28/2013, 06/2011, 07/01/2011 COVID-19 Vaccine Completed 03/08/2024, 08/2023, 08/22/2020, Additional history exists Influenza Vaccine Completed 03/08/2024, , 10/29/2009 HIV Screening Completed 04/25/2024, 04/04, 09/30/2022, Additional history exists Hepatitis C Screening Completed 04/25/2024 , 04/25/2024, 09/30/2022, Additional history exists HIB Vaccines Aged Out No longer eligi ble based on patient's age to complete this topic Meningococcal Vaccine Aged Out No val dusty eligible based on patient's age to complete this topic Pneumococcal Vaccine: Pediatrics (0 to 5 Years) and At-Risk Patients (6 to 64 Years) Aged Out No longer eligible based on patient's age to complete this topic RSV under 20 months Aged Out No longe r eligible based on patient's age to complete this topic Rotavirus Vaccines Aged Out No longer eligible based on patient's age to complete this topic Procedures Procedure Name Priority Date/Time Associated Diagnosis Comments CHLAMYDIA/GONORRHEA - URINE ([place] DPH) Routine 04/26/2024 CHLAMYDIA/GONORRHEA RECTAL SWAB ([place] DPH) Routine 04/26/2024 CHLAMYDIA/GONORRHEA THROAT SWAB ([place] DPH) Routine 04/26/2024 RPR (MONITOR) W/REFL TITER Routine 04/25/2024 11:50 AM EST HIV 1/2 ANTIGEN/ANTIBODY, FOURTH GENERATION W/RFL Routine 04/25/2024 11:50 AM EST HEPATITIS C VIRAL RNA, QUANTITATIVE, REAL-TIME PCR Routine 04/25/2024 11:50 AM EST HEPATITIS C AB W/REFL TO HCV RNA, QN, PCR Routine 04/25/2024 11:50 AM EST Screening for STD (sexually transmitted disease) HIV 1 RNA, QUANTITATIVE REAL TIME PCR Routine 04/25/2024 11:50 AM EST Screening for STD (sexually transmitted disease) SYPHILIS SCREEN Routine 04/25/2024 11:50 AM EST Screening for STD (sexually transmitted disease) TSH W/REFLEX TO FT4 Routine 04/25/2024 1 1:50 AM EST Family history of thyroid disease HEMOGLOBIN A1C Routine 04/25/2024 11:50 AM EST High risk sexual behavior, unspecified type Family history of diabetes mellitus COMPREHENSIVE METABOLIC PANEL Routine 04/25/2024 11:50 AM EST Elevated blood pressure reading LIPID PANEL WITH REFLEX TO DIRECT LDL Routine 04/25/2024 11:50 AM EST Screening for diabetes mellitus ALBUMIN, RANDOM URINE W/CREATININE Routine 04/25/2024 11:48 AM EST Elevated blood pressure reading CYTOPATH-CELL ENHANCED Routine 1:17 PM EST HPV MRNA E6/E7,RECTAL W/ RFL GENOTYPES,16,18/45 Routine 03/08/2024 12:00 AM EST from Last 3 Months Results * Chlamydia/Gonorrhea, Rectal Swab ([place] DPH) (04/26/2024) Chlamydia Rectal Swab Negative Negative, Indeterminate, None Detected, Invalid, Specimen unsatisfactory for evaluation Gonorrhea Rectal Swab Negative Negative, Indeterminate, None Detected, Invalid, Specimen unsatisfactory for evaluation Swab 04/26/2024 Historical Provider MD LAB MICROBIOLOGY - GENERA L ORDERABLES Final Result * Chlamydia/Gonorrhea Throat Swab ([place] DPH) (04/26/2024) Chlamydia Throat Swab Negative Gonorrhea Throat Swab Negative Swab 04/26/2024 Historical Provider MD LAB MICROBIOLOGY - GENERA L ORDERABLES Final Result * Chlamydia/Gonorrhea, Urine ([place] DPH) (04/26/2024) Chlamydia, Urine Negative Negative, Indeterminate, None Detected, Invalid, Specimen unsatisfactory for evaluation, Weakly Positive Gonorrhea, Urine Negative Negative, Indeterminate, None Detected, Invalid, Specimen unsatisfactory for evaluation, Weakly Positive Urine 04/26/2024 Historical Provider LAB URINE ORDERABLES Allyson l Result * Syphilis Screen (04/25/2024 11:50 AM EST) Syphilis Screen Nonreactive Nonreactive [facility] Blood 04/25/2024 11:5 0 AM EST 04/25/2024 1:40 PM EST Alexandra Morgan MD LAB BLOOD ORDERABLES Final Resul t [facility] [address] [place] [phone] * TSH with Reflex to Free T4 (04/25/2024 11:50 AM EST) TSH reflex Free T4 3.24 0.32 - 4.0 uIU/mL [facility] Blood 04/25/2024 11:5 0 AM EST 04/25/2024 1:40 PM EST us Alexandra Morgan MD LAB BLOOD ORDERABLES Final Resul t Performing Organization Address [facility] Co de Phone Number [facility] [address] [place] [phone] * (ABNORMAL) Lipid Panel with Reflex to Direct LDL (04/25/2024 11:50 AM EST) Triglycerides 280(H) <150 mg/dL [facility] Comment:Desirable Triglyceri de: less than 150 mg/dLBorderline High Triglyceride 150-199 mg/dLHigh Triglyceride: 200-499 mg/dLVery High Triglyceride: greater than or equal to 5OO mg/dL Cholesterol 225(H) <200 mg/dL [facility] Comment:Desirable Cholestero l: less than 200 mg/dLBorderline High Cholesterol: 200-239 mg/dLHigh Cholesterol: greater than 239 mg/dL LDL Cholesterol Calculated 115(H) <100 mg/dL [facility] Comment:Desirable LDL: less than 100 mg/dLNear Optimal/Above Optimal LDL: 110- 129 mg/dLBorderline High LDL: 130-159 mg/dLHigh LDL: 160-189 mg/dLVery High LDL: greater than or equal to 190 mg/dL HDL Cholesterol 54 >40 mg/dL [facility] Comment:Desirable HDL: great er than 40 mg/dL Note: This HDL assay may give artificially low results in patients with liver disease. Blood 04/25/2024 11:5 0 AM EST 04/25/2024 1:40 PM EST us Alexandra Morgan MD LAB BLOOD ORDERABLES Final Resul t Performing Organization Address [facility]/ZIP Co de Phone Number [facility] [address] [place] [phone] * Hepatitis C Viral RNA, Quantitative, Real-Time PCR (04/25/2024 11:50 AM EST) Hepatitis C Viral Load <15 NOT DETECTED NOT DETECTED IU/mL [facility] HCV Log PCR <1.18 NOT DETECTED NOT DETECTED Log IU/mL [facility] Comment:For additional infor krish, please refer tohttp://education.TalentBin/faq/DLG36w7(This link is being provided for informational/educational purposes only.)THIS TEST WAS PERFORMED AT:[address] [place] [phone] SOLIS MD 04/25/2024 11:5 0 AM EST 04/25/2024 1:55 PM EST Alexandra Morgan MD LAB BLOOD ORDERABLES Final Resul t Performing Organization Address [facility]/ZIP Co de Phone Number [facility] [address] [place] [address] [phone] * Hepatitis C Antibody with Reflex to HCV, RNA, Quantitative, Real-Time PCR (04/25/2024 11:50 AM EST) Hepatitis C Antibody Nonreactive Nonreactive [facility] Comment:Antibodies to HCV no t detected; does not exclude early acuteHCV infection. Blood Venous blood specimen / Unknown 04/25/2024 11:50 AM EST 04/25/2024 1:40 PM EST Alexandra Morgan MD LAB BLOOD ORDERABLES Final Resul t Performing Organization Address [facility] Co de Phone Number [facility] [address] [place] [phone] * HIV-1 RNA, Quantitative, Real-Time PCR (04/25/2024 11:50 AM EST) HIV RNA PCR Qn Copies NOT DETECTED NOT DETECTED copies/mL [facility] HIV RNA PCR Qn Log Copies NOT DETECTED NOT DETECTED [facility] Comment:Result Units: Log co pies/mLThis test was performed using Real-Time Polymerase ChainReaction.Reportable Range: 20 copies/mL to 10,000,000 copies/mL(1.30 log copies/mL to 7.00 log copies/mL).THIS TEST WAS PERFORMED AT:[address] [place] [phone] SOLIS MD Blood Venous blood specimen / Unknown 04/25/2024 11:50 AM EST 04/25/2024 1:40 PM EST Alexandra Morgan MD LAB BLOOD ORDERABLES Final Resul t Performing Organization Address [facility] Co de Phone Number [facility] [address] [place] [phone] * RPR (Monitor) with Reflex to??Titer (04/25/2024 11:50 AM EST) RPR (Monitor) w/Refl Titer NON-REACTI VE NON-REACT ALEX [facility] Comment:THIS TEST WAS PERFOR MED AT:[facility] [address] [phone] SOLIS MD Rapid Plasma Reagin Ab Titer TNP [facility] 04/25/2024 11:5 0 AM EST 04/25/2024 1:55 PM EST Alexandra Morgan MD LAB BLOOD ORDERABLES Final Resul t Performing Organization Address [facility] Phone Number [facility] [address] [place] [phone] * HIV-1/2 Antigen and Antibodies, Fourth Generation, with Reflexes (04/25/2024 11:50 AM EST) HIV AB/AG Nonreactive Nonreactive [facility] Comment:HIV-1 p24 Ag and/or HIV-1/HIV-2 Ab not detected.A test result that is nonreactive does not exclude thepossibility of exposure to or infection with HIV-1 and/orHIV-2. Nonreactive results in this assay for individualswith prior exposure to HIV-1 and/or HIV-2 may be due toantigen and antibody levels that are below the limit ofdetection of this assay.The Hitpost HIV Ag/Ab Combo assay result andsupplemental assay results should be interpreted inconjunction with the patient's clinical presentation,history and other laboratory results. If the results areinconsistent with clinical evidence, additional testing issuggested to confirm the result. 04/25/2024 11:5 0 AM EST 04/25/2024 1:40 PM EST us Alexandra Morgan MD LAB BLOOD ORDERABLES Final Resul t Performing Organization Address [facility] Co de Phone Number [facility] [address] [place] [phone] * Hemoglobin A1c (04/25/2024 11:50 AM EST) Hemoglobin A1c 5.4 <6.0 % [facility] Comment:Hemoglobin A1C Refer ence Range Adults: 4.8 - 6.0 % Non diabetic: < 6.0 % Goal: < 7.0 %Additional Action Suggested: > 8.0 %Note: Hemoglobin A1c results are invalid for patients with abnormal amounts of HbF. Blood transfusions may impact the HbA1c concentration in the patient sample. Estimated Average Glucose 108 mg/dL [facility] Comment:eAG = Estimated ave rage glucose which is %A1C expressed asaverage glucose, using the formula of the P0G-VdbtfvdPuocvbn Glucose study (ADAG), Diabetes Care, Vol.31,#8,Dec. 2007 Blood Venous blood specimen / Unknown 04/25/2024 11:50 AM EST 04/25/2024 1:40 PM EST us Alexandra Morgan MD LAB BLOOD ORDERABLES Final Resul t Performing Organization Address [facility] Co de Phone Number [facility] [address] [place] [phone] * (ABNORMAL) Comprehensive Metabolic Panel (04/25/2024 11:50 AM EST) Sodium 140 135 - 145 mmol/L [facility] Potassium 4.1 3.3 - 5.1 mmol/L [facility] Chloride 102 96 - 108 mmol/L [facility] Carbon Dioxide 32(H) 22 - 29 mmol/L [facility] Anion Gap 10(L) 12 - 20 [facility] Urea Nitrogen (BUN) 13 9 - 16 mg/dL [facility] Creatinine, Serum 1.25 0.5 - 1.4 mg/dL [facility] Estimated Glomerular Filt Rate >60 [facility] Comment:Chronic Kidney Disea se: Estimated GFR < 60 mL/min/1.57e6Thghsb Kidney Disease: Estimated GFR < 15 mL/min/1.73m2 Glucose 97 60 - 115 mg/dL [facility] Calcium 9.2 8.4 - 10.2 mg/dL [facility] Bilirubin, Total 0.7 0.0 - 1.0 mg/dL [facility] Aspartate Amino Transferase 42(H) 5 - 37 U/L [facility] Alanine Aminotransferase 90(H) 0 - 40 U/L [facility] Total Protein 7.7 6.5 - 8.0 g/dL [facility] Albumin Level 4.4 3.5 - 5.0 g/dL [facility] Alkaline Phosphatase 83 39 - 117 U/L [facility] Blood Venous blood specimen / Unknown 04/25/2024 11:50 AM EST 04/25/2024 1:40 PM EST us Alexandra Morgan MD LAB BLOOD ORDERABLES Final Resul t [facility] [address] [place] [phone] * Albumin, Random Urine W/Creatinine (04/25/2024 11:48 AM EST) Creatinine, Urine 332.24 mg/dL [facility] Microalbumin Urine 42.0 mg/L [facility] Microalbum Creatinine Ratio Ur 12.6 <30 ug/mg cr [facility] Comment:Albumin/Creatinine R atio Reference Ranges: Normal: < 30 ug/mg creatinine Microalbuminuria: 30 - 300 ug/mg creatinineClinical Albuminuria: > 300 ug/mg creatinine Urine 04/25/2024 11:4 8 AM EST 04/25/2024 2:28 PM EST us Alexandra Morgan MD LAB URINE ORDERABLES Final Resul t [facility] [address] [place] [phone] * Cytopath-cell enhanced (03/09/2024 1:17 PM EST) 03/09/2024 1:17 PM EST 03/09/2024 1:20 PM EST Narrative [facility] - 03/11/2024 9:51 AM EST ----- ------- Name: Leonid Jimenes I ?Age/Sex: 33/M ? : 1990 Unit#: [id number] ?? Attend Dr: Alexandra Morgan MD ?Re03/08/24 ?Status: DEP REF ? [facility] Disch: ? ----- ------- SPEC : [id number] ? RECD: 03/09/24 ? STATUS: ??SOUT ? REQ NUM: [id number] ? ESTEFANI: 03/09/24 ? SUBM DR: Alexandra Morgan MD ? ENTERED: ??03/10/24 ?SP TYPE: Cytology ? OTHR : ? ORDERED: ??Cyto-enhanced ? Diagnosis ?? Descriptive Diagnosis: ? Negative for intraepithelial lesion/malignancy. ?? Specimen Adequacy: ? Glandular epithelium present; partially obscuring lubricant. ?? Comments: ?Benign appearing squamous cells with admixed anucleate forms are ?? present. ?Clinical History High risk sexual behavior, unspecified type ? Material Received ?? Rectal PAP ? Gross Description Received are 30 cc of CytoLyt fluid labelled anal pap from which a ThinPrep slide is prepared. ----- ------- Signed (signature on file) Neto Bravo MD 03/11/24 0951 ? ----- ------- ? END OF REPORT ? us Alexandra Morgan MD LAB CYTOLOGY ORDERABLES Final Re sult [facility] [address] [place] [phone] * HPV mRNA E6/E7, Rectal with Reflex to Genotypes, 16, 18/45 (03/08/2024 12:00 AM EST) HPV mRNA E6/E7, Rectal NOT DETECTED [facility] Comment:REFERENCE RANGE: NOT DETECTEDMethodology: Sales Service Supervisor-Mediated AmplificationThis assay detects E6/E7 viral messengerRNA(mRNA) from 14 high-risk HPV types (16, 18,31, 33, 35, 39, 45, 51, 52, 56, 58, 59, 66, 68).The analytical performance characteristics of thisassay have been determined by [employer]. Themodifications have not been cleared or approved bythe FDA. This assay has been validated pursuant to theIA regulations and is used for clinical purposes.For additional information, please refer tohttp://education.TalentBin/faq/HLW984q0(This link is being provided for informational/educational purposes only).THIS TEST WAS PERFORMED AT:[employer] [id number] [place] [phone] ALEXANDRA MD,PHD,KORINA HPV 16 RNA [facility] HPV 18/45 RNA [facility] 03/08/2024 03/09/2024 2:1 0 PM EST us Alexandra Morgan MD LAB CYTOLOGY ORDERABLES Final Re sult [facility] [address] [place] [phone] from Last 3 Months Insurance [facility] Care Teams [employer] Customer Experience Advisor Relationship Specialty Start Date End Date Alexandra Morgan MD [address] [place] [phone] PCP - General Family Medicine 01/09/22
--- OUTSIDE RECORDS SUMMARY | 2024-05-30 13:23 | XMS_ITS | Encounter Summary ---
Author Organization [employer] [facility] Address [address] [place] [address] Care Team Providers Care Anesthesia Associate Name Role Phone Alexandra Morgan MD Primary Care Provider [phone] Encounter Details Date Type Department Care Team (Late st Contact Info) Description 04/20/2024 Orders Only [facility] MEDICINE [address] [place] [address] Marissa Alva, DANIEL [address] [place] [address] Screening for STD (sexually transmitted disease) Social History Tobacco Use Types Packs/Day Years [...] Type Priority Associated Diagnoses Orde r Schedule HIV-1/2 Antigen and Antibodies, Fourth Generation, with Reflexes Lab Routine Screening for STD (sexually transmitted disease) Expected: 04/20/2024 (Approximate), Expires: 04/20/2025 RPR (Monitor) with Reflex to??Titer Lab Routine Screening for STD (sexually transmitted disease) Expected: 04/20/2024 (Approximate), Expires: 04/20/2025 Hepatitis C Viral RNA, Quantitative, Real-Time PCR Lab Routine Screening for STD (sexually transmitted disease) Expected: 04/20/2024 (Approximate), Expires: 04/20/2025 documented as of this encounter Visit Diagnoses Diagnosis Screening for STD (sexually transmitted disease) documented in this encounter Care Teams Anesthesia Associate Relationship Specialty Start Date End Date Alexandra Morgan MD [address] [place] [phone] PCP - General Family Medicine 01/09/22 documented as of this encounter
== END 2024-05-30 09:02 | disposition home or self-care (01) ==
LOC: HO.US 09:01
PROVIDERS: PCP Internal Medicine; Visit Provider Family Medicine
DX: R74.01 Elevation of levels of liver transaminase levels (principal)
CPT/HCPCS: 76700

== ENCOUNTER → 2024-05-30 09:06 | Outpatient (BNV) | payer OTHER, SELFPAY | PROVIDERS: PCP Internal Medicine; Visit Provider Radiology Diagnostic Radiology | DX: R74.01 Elevation of levels of liver transaminase levels (principal) | CPT/HCPCS: 76700 ==

== ENCOUNTER 2025-01-03 14:41 | Outpatient (REF) | payer OTHER, SELFPAY ==
--- OUTSIDE RECORDS SUMMARY | 2025-01-03 13:45 | XMS_ITS | Encounter Summary ---
Author Organization [employer] Address [address] [facility] [address] [place] [address] Care Team Providers Care Brake Coupler Dinkey Name Role Phone Alexandra Morgan MD Primary Care Provider [phone] Reason for Visit * Reason Comments Annual Exam Encounter Details Date Type Department Care Team (Late st Contact Info) Description 01/03/2025 1:45 PM EDT Office Visit [facility] MEDICINE [address] [place], [place] [phone] Alexandra Morgan MD [address] [place], [place] [phone] Routine general medical examination at a health care facility (Primary Dx); Mixed hyperlipidemia; Elevated blood pressure reading; Family history of thyroid disease; Family history of diabetes mellitus; On pre-exposure prophylaxis for HIV; Fatigue, unspecified type Social History Tobacco Use Types Packs/Day Years Used Date Smoking Tobacco: Never Passive Smoke Exposure: Never Smokeless Tobacco: Never Alcohol Use Standard Drinks/Week Comments Not Currently 0 (1 standard drink = 0.6 oz pur e alcohol) Depression Answer Date Recorded Patient Health Questionnaire-9 Score 13 01/03/2025 Patient Health Questionnaire-9 Score 13 01/03/2025 Last PHQ-9: Questionnaire Data Not on file 0 01/03/2025 Housing Stability Answer Date Recorded What is your housing situation today? I have lara pierce 12/27/[address] you li ve. Do you have problems with any of the following? None of the above 12/27/2024 Food Insecurity Answer Date Recorded Within the past 12 months, y ou worried that your food would run out before you got money to buy more: Never True 12/27/2024 Within the past 12 months,th e food you bought just didn't last and you didn't have enough money to get more: Never True Transportation Answer Date Recorded In the past 12 months, has l ack of transportation kept you from medical appts, meetings, work or from getting things needed for daily living? No 12/27/2024 Utilities Answer Date Recorded In the past 12 months, has t he electric, gas, oil or water company threatened to shut off services in your home? No 12/27/2024 Depression Answer Date Recorded Patient Health Questionnaire-2 Score 4 01/03/2025 Internet Access Answer Date Recorded Internet Access Q1 Yes 12/27/2024 Internet Access Q2 Not on file 12/27/2024 Sex and Gender Information Value Date Recorded Sex Assigned at Male 03/03/2022 10:21 AM EDT Legal Sex Male 10:21 AM EDT Gender Identity Male 03/03/2022 10:21 AM EDT Sexual Orientation Lesbian or [place] 03/03/2022 10 :21 AM EDT documented as of this encounter Last Filed Vital Signs Vital Sign Reading Time Taken Comments Blood Pressure 140/108 01/03/2025 2:19 PM EDT Pulse 95 01/03/2025 1:55 PM EDT Temperature 36.7 C (98 F) 01/03/2025 1:55 PM EDT Respiratory Rate 20 01/03/2025 1:55 PM EDT Oxygen Saturation 99% 01/03/2025 1:55 PM EDT Inhaled Oxygen Concentration - - Weight 84.3 kg (185 lb 12.8 oz) 01/03/2025 1:55 PM EDT Height 182.9 cm (6') 01/03/2025 1:55 PM EDT Body Mass Index 25.2 01/03/2025 1:55 PM EDT documented in this encounter Functional Status * Over the past 2 weeks, how often have you been bothered by any of the following problems? Question Answer Date of Assessment Author Patient Health Questionnaire -2 Score 4 01/03/2025 2:49 PM EDT Roya Garcia MA * Little interest or pleasure in doing things Answer Date of Assessment Author More than half the days 01/03/2025 2:49 PM EDT Jelena English MA * Feeling down, depressed, or hopeless Answer Date of Assessment Author More than half the days 01/03/2025 2:49 PM EDT Jelena English MA * Trouble falling or staying asleep, or sleeping too much Answer Date of Assessment Author More than half the days 01/03/2025 2:49 PM EDT Jelena English MA * Feeling tired or having little energy Answer Date of Assessment Author Several days 01/03/2025 2:49 PM EDT Jelena Garcia MA * Poor appetite or overeating Answer Date of Assessment Author More than half the days 01/03/2025 2:49 PM EDT Jelena English MA * Feeling bad about yourself - or that you are a failure or have let yourself or your family down Answer Date of Assessment Author Not at all 01/03/2025 2:49 PM EDT Jelena Garcia MA * Trouble concentrating on things, such as reading the newspaper or watching television Answer Date of Assessment Author More than half the days 01/03/2025 2:49 PM EDT Jelena English MA * Moving or speaking so slowly that other people could have noticed? Or the opposite - being so fidgety or restless that you have been moving around a lot more than usual. Answer Date of Assessment Author More than half the days 01/03/2025 2:49 PM JUDYT Jelena English MA * Thoughts that you would be better off or hurting yourself in some way Answer Date of Assessment Author Not at all 01/03/2025 2:49 PM Jelena Chaudhari MA * Patient Health Questionnaire-9 Score Answer Date of Assessment Author 13 01/03/2025 2:49 PM EDT Jelena Garcia MA * How difficult have these problems made it for you to do your work, take care of things at home, or get along with other people? Answer Date of Assessment Author Somewhat difficult 01/03/2025 2:49 PM JUDYT Jelena Concepcion MA * Over the last 2 weeks, how often have you been bothered by any of the following problems? Question Answer Date of Assessment Author Feeling nervous, anxious, or on edge 2 01/03/2025 2:50 PM EDT Roya Garcia MA Not being able to stop or control worrying 2 01/03/2025 2:50 PM EDT Roya Garcia MA Worrying too much about different things 2 01/03/2025 2:50 PM EDT Roya Garcia MA Trouble relaxing 2 01/03/2025 2:50 PM EDT Jelena English MA Being so restless that it is hard to sit still 2 01/03/2025 2:50 PM EDT Roya Garcia MA Becoming easily annoyed or irritable 2 01/03/2025 2:50 PM EDT Roya Garcia MA documented as of this encounter Plan of Treatment Upcoming Encounters Date Type Department Care Team (Late st Contact Info) Description 01/24/2025 9:30 AM EDT Clinical Support [facility] MEDICINE [address] [place] [address] Scheduled Orders Name Type Priority Associated Diagnoses Orde r Schedule CBC auto differential Lab Routine Fatigue, unspecified type Expected: 01/03/2025 (Approximate), Expires: 01/03/2026 Comprehensive Metabolic Panel Lab Routine Fatigue, unspecified type Expected: 01/03/2025 (Approximate), Expires: 01/03/2026 Lipid Panel with Reflex to Direct LDL Lab Routine Mixed hyperlipidemia Expected: 01/03/2025 (Approximate), Expires: 01/03/2026 TSH with Reflex to Free T4 Lab Routine Fatigue, unspecified type Expected: 01/03/2025 (Approximate), Expires: 01/03/2026 documented as of this encounter Visit Diagnoses Diagnosis Routine general medical examination at a health care facility- Primary Mixed hyperlipidemia Elevated blood pressure reading Elevated blood pressure reading without diagnosis of hypertension Family history of thyroid disease Family history of other endocrine and metabolic diseases Family history of diabetes mellitus On pre-exposure prophylaxis for HIV Fatigue, unspecified type documented in this encounter Additional Health Concerns Assessment Noted Time PHQ-9 Depression Total Score: 13 025 2:49 PM EDT documented as of this encounter Care Teams Brake Coupler Dinkey Relationship Specialty Start Date End Date Alexandra Morgan MD [address] [place] [address] PCP - General Family Medicine 01/09/22 documented as of this encounter
--- OUTSIDE RECORDS SUMMARY | 2025-01-03 15:57 | XMS_ITS | Encounter Summary ---
Author Organization [employer] [facility] Address [address] [place] [address] Care Team Providers Care General Agent Name Role Phone Alexandra Morgan MD Primary Care Provider [phone] Encounter Details Date Type Department Care Team (Late st Contact Info) Description 10/14/2024 Orders Only [facility] MEDICINE [address] [place], [place] [phone] Alexandra Morgan MD [address] [place], [place] [phone] Social History Tobacco Use Types Packs/Day Years [...] Description 01/24/2025 9:30 AM EDT Clinical Support [facility] MEDICINE [address] [place] [address] documented as of this encounter Visit Diagnoses Not on filedocumented in this encounter Care Teams General Agent Relationship Specialty Start Date End Date Alexandra Morgan MD [address] [place] [address] PCP - General Family Medicine 01/09/22 documented as of this encounter
--- OUTSIDE RECORDS SUMMARY | 2025-01-03 15:57 | XMS_ITS | Encounter Summary ---
Author Organization [employer] [facility] Address [address] [place] [address] Care Team Providers Care Horticultural Specialty Grower Field Name Role Phone Alexandra Morgan MD Primary Care Provider [phone] Encounter Details Date Type Department Care Team (Latest Contact Info) Description 05/06/2018 Abstract [facility] CONVERSIONS Dental, Provider, DDS Social History Tobacco [...] Description 01/24/2025 9:30 AM EDT Clinical Support [facility] MEDICINE [address] [place] [address] documented as of this encounter Visit Diagnoses Not on filedocumented in this encounter Care Teams Horticultural Specialty Grower Field Relationship Specialty Start Date End Date Alexandra Morgan MD [address] [place] [address] PCP - General Family Medicine 01/09/22 documented as of this encounter
--- OUTSIDE RECORDS SUMMARY | 2025-01-03 15:57 | XMS_ITS | Encounter Summary ---
Author Organization [employer] [facility] Address [address] [facility] 7t [place] [address] Care Team Providers Care Wire Weaver Name Role Phone Alexandra Morgan MD Primary Care Provider [phone] Reason for Visit * Reason Comments Med Refill Encounter Details Date Type Department Care Team (Late st Contact Info) Description 10/14/2022 Refill [facility] MEDICINE [address] [place] [phone] Alexandra Morgan MD [address] [place] [phone] On pre-exposure prophylaxis for HIV Social History [...] Description 01/24/2025 9:30 AM EDT Clinical Support [facility] MEDICINE [address] [place] [phone] documented as of this encounter Visit Diagnoses Diagnosis On pre-exposure prophylaxis for HIV documented in this encounter Care Teams Wire Weaver Relationship Specialty Start Date End Date Alexandra Morgan MD [address] [place] [phone] PCP - General Family Medicine 01/09/22 documented as of this encounter
--- OUTSIDE RECORDS SUMMARY | 2025-01-03 15:57 | XMS_ITS | Encounter Summary ---
Author Organization [employer] [facility] Address [address] [facility] 7t [place] [address] Care Team Providers Care Lock Tender Name Role Phone Alexandra Morgan MD Primary Care Provider [phone] Encounter Details Date Type Department Care Team (Latest Contact Info) Description 01/02/2025 Travel Social History Tobacco Use Types Packs/Day Years [...] Description 01/24/2025 9:30 AM EDT Clinical Support [facility] [address] [place] [address] documented as of this encounter Visit Diagnoses Not on filedocumented in this encounter Care Teams Lock Tender Relationship Specialty Start Date End Date Alexandra Morgan MD [address] [place] [address] PCP - General Family Medicine 01/09/22 documented as of this encounter
--- OUTSIDE RECORDS SUMMARY | 2025-01-03 15:57 | XMS_ITS | Encounter Summary ---
Author Organization [employer] [facility] Address [address] [place] [address] Care Team Providers Care Account Support Specialist Name Role Phone Alexandra Morgan MD Primary Care Provider Encounter Details Date Type Department Care Team (Latest Contact Info) Description 01/03/2025 Travel Social History Tobacco Use Types Packs/Day [...] AM EDT documented as of this encounter Functional Status * Over the [...] 2:49 PM EDT Jelena English MA * Thoughts that you would be better off or hurting yourself in some way Answer Date of Assessment Author Not at all 01/03/2025 2:49 PM EDT Jelena Garcia MA * Patient Health Questionnaire-9 Score Answer Date of Assessment Author 13 01/03/2025 2:49 PM EDT Jelena Garcia MA * How difficult have these problems made it for you to do your work, take care of things at home, or get along with other people? Answer Date of Assessment Author Somewhat difficult 01/03/2025 2:49 PM EDT Jelena Concepcion MA * Over the last [...] Description 01/24/2025 9:30 AM EDT Clinical Support [facility] MEDICINE [address] [place] [address] documented as of this encounter Visit Diagnoses Not on filedocumented in this encounter Additional Health Concerns Assessment Noted Time PHQ-9 Depression Total Score: 13 025 2:49 PM EDT documented as of this encounter Care Teams Account Support Specialist Relationship Specialty Start Date End Date Alexandra Morgan MD [address] [place] [address] PCP - General Family Medicine 01/09/22 documented as of this encounter
--- OUTSIDE RECORDS SUMMARY | 2025-01-03 15:57 | XMS_ITS | Clinical Summary ---
Author Organization [employer] Address [address] [facility] 7t [place] [address] Care Team Providers Care Store Specialist Name Role Phone Alexandra Morgan MD Primary Care Provider [phone] Allergies No known active allergies Medications Blood Pressure Monitoring (Omron 3 Series BP Monitor) device USE TO CHECK BLOOD PRESSURE DIRECTED 01/10/20 22 Active ibuprofen 400 MG tablet Take 1 tablet (400 mg) by mouth every 6 (six) hours if needed for moderate pain or fever for up to 30 doses. 30 tablet 10/05/19 24 Active emtricitabine- tenofovir AF (Descovy) 200-25 MG tabletIndicati ons:On pre-exposure prophylaxis for HIV Take 1 tablet by mouth in the morning. 30 tablet 2 11/26/19 25 Active doxycycline (Vibramycin) 100 MG capsule Take 2 pills within 24 hours (preferably 24 hours but no later than 72 hours) after unprotected (condomless or broken condom) sex. 50 capsule 1 01/04/20 25 Active olmesartan (Benicar) 5 MG tablet Take 1 tablet (5 mg) by mouth Once per day. 90 tablet 3 01/04/20 25 026 Active doxycycline (Vibramycin) 100 MG capsule Take 2 pills within 24 hours (preferably 24 hours but no later than 72 hours) after unprotected (condomless or broken condom) sex. 50 capsule 1 03/13/20 24 025 Discontinued(R eorder (will not trigger notification to Pharmacy)) Active Problems Problem Noted Date Diagnosed Date [...] Encounters Date Type Department Care Team Description 01/03/2025 1:45 PM EDT Office Visit [facility] MEDICINE [address] [place] [address] Alexandra Morgan MD Routine general medical examination at a health care facility (Primary Dx); Mixed hyperlipidemia; Elevated blood pressure reading; Family history of thyroid disease; Family history of diabetes mellitus; On pre-exposure prophylaxis for HIV; Fatigue, unspecified type 01/03/2025 Travel 01/02/2025 Travel 12/27/2024 Patient Outreach [facility] [address] [place] [address] Alexandra Morgan MD Pre-visit Planning (SDOH negative , Tobacco screening negative.) 12/09/2024 Orders Only [facility] MEDICINE [address] [place] [phone] Katelin Harris, DANIEL 11/25/2024 Orders Only [facility] MEDICINE [address] [place] [address] Alexandra Morgan MD On pre-exposure prophylaxis for HIV 11/09/2024 Refill [facility] [address] [place] [address] Lissa Gardiner, DANIEL On pre-exposure prophylaxis for HIV (Primary Dx) 11/08/2024 Refill [facility] [address] [place] [phone] Lissa Gardiner, DANIEL 10/27/2024 Telephone [facility] [address] [place] [phone] Alexandra Morgan MD Medication Question 10/27/2024 Refill [facility] [address] [place] [phone] Alexandra Morgan MD On pre-exposure prophylaxis for HIV 10/14/2024 Orders Only [facility] [address] [place] [phone] Alexandra Morgan MD 10/12/2024 Telephone [facility] [address] [place] [phone] Lissa Gardiner, DANIEL 10/11/2024 Telephone [facility] [address], [place] [phone] Alexandra Morgan MD Prior Authorization (Descovy 200-25 MG tablet) from Last 3 Months Immunizations Immunization Administration Dates Next Due HPV, Quadrivalent 03/28/2013,08/04/2011,07/01/19 [...] Mass Index 25.2 01/03/2025 1:55 PM EDT Plan of Treatment Upcoming Encounters Date Type Department Care Team (Late st Contact Info) Description 01/24/2025 9:30 AM EDT Clinical Support [facility] [address] [place] [phone] Health Maintenance Due Date Last Done Comments Alcohol/Substance Use Screening 2004 Family Planning (PISQ) 11/13/2007 IPV Vaccines (4 of 4 - 5-dose series) 09/01/2010 03/04/2010, 01/31/2010, 01/01/2010, Additional history exists Influenza Vaccine (#1) 2025 , 04/12/2015, 10/29/2009 Depression Monitoring 07/03/2025 01/03/2025, 025 SDOH Screening 12/27/2025 12/27/2024 Disability Screening 01/02/2026 01/02/2025 Tobacco Screening 01/03/2026 01/03/2025 DTaP/Tdap/Td Vaccines (5 - Td or Tdap) 07/05/2033 07/06/2023, 05/12/2011, 05/27/2010, Additional history exists Zoster Vaccines (1 of 2) 2042 RSV Patients and Patients Aged 60 years or older (1 - 1-dose 75+ series) 11/13/2067 Hepatitis B Vaccines Completed 03/04/2010, 01/01/2010, 10/29/2009 Hepatitis A Vaccines Completed 05/27/2010, 10/30/19 10 HPV Vaccines Completed 03/28/2013, 040 06/2011, 07/01/2011 COVID-19 Vaccine Completed 03/08/2024, 08/2023, 08/22/2020, Additional history exists HIV Screening Completed 12/05/2024, 07/03, 04/25/2024, Additional history exists Hepatitis C Screening Completed 12/05/2024 , 07/27/2024, 04/25/2024, Additional history exists HIB Vaccines Aged Out No longer eligi ble based on patient's age to complete this topic Meningococcal B Vaccine Aged Out No l onger eligible based on patient's age to complete this topic Meningococcal Vaccine Aged Out No val dusty eligible based on patient's age to complete this topic Pneumococcal Vaccine: Pediatrics (0 to 5 Years) and At-Risk Patients (6 to 49) Years Aged Out No longer eligible based on patient's age to complete this topic RSV under 20 months Aged Out No longe r eligible based on patient's age to complete this topic Rotavirus Vaccines Aged Out No longer eligible based on patient's age to complete this topic Procedures Procedure Name Priority Date/Time Associated Diagnosis Comments HIV ANTIBODY/ANTIGEN ([place] DPH) Routine 12/05/2024 HEPATITIS C ANTIBODY ([place] D[facility]) Routine 12/05/2024 SYPHILIS ABS ([place] D[facility]) Routine 12/05/2024 CHLAMYDIA/GONORRHEA - URINE ([place] DPH) Routine 12/05/2024 CHLAMYDIA/GONORRHEA THROAT SWAB ([place] DPH) Routine 12/05/2024 CHLAMYDIA/GONORRHEA RECTAL SWAB ([place] DPH) Routine 12/05/2024 from Last 3 Months Results * Chlamydia/Gonorrhea, Rectal Swab ([place] DPH) (12/05/2024) Chlamydia Rectal Swab Negative Negative, Indeterminate, None Detected, Invalid, Specimen unsatisfactory for evaluation, 2+ Gonorrhea Rectal Swab Negative Negative, Indeterminate, None Detected, Invalid, Specimen unsatisfactory for evaluation, 2+ Swab 12/05/2024 Result [facility] Provider MD LAB MICROBIOLOGY - GENERA L ORDERABLES Final Result * Chlamydia/Gonorrhea Throat Swab ([place] DPH) (12/05/2024) Pathologist [facility] Chlamydia Throat Swab Negative Gonorrhea Throat Swab Negative Swab 12/05/2024 Result [facility] Provider LAB MICROBIOLOGY - GENERA L ORDERABLES Final Result * Chlamydia/Gonorrhea, Urine ([place] DPH) (12/05/2024) Pathologist [facility] Chlamydia, Urine Negative Negative, Indeterminate, None Detected, Invalid, Specimen unsatisfactory for evaluation, Weakly Positive, 2+ Gonorrhea, Urine Negative Negative, Indeterminate, None Detected, Invalid, Specimen unsatisfactory for evaluation, Weakly Positive, 2+ Urine 12/05/2024 Result [facility] Provider MD LAB URINE ORDERABLES Allyson l Result * Syphilis Antibodies (DPH) (12/05/2024) Pathologist [facility] Syphilis Abs Nonreactive Borderline, Nonreactive, Weakly Reactive, Inconclusive, Specimen unsatisfactory for evaluation Blood Venous blood specimen / Unknown 12/05/2024 Result [facility] Provider MD LAB BLOOD ORDERABLES Allyson l Result * Hepatitis C Antibody ([place] DPH) (12/05/2024) Pathologist [facility] Hepatitis C Ab Nonreactive Blood 12/05/2024 Result [facility] MD LAB BLOOD ORDERABLES Allyson l Result * HIV Ab/Ag ([place] DPH) (12/05/2024) HIV Ag/Ab Nonreactive Blood 12/05/2024 us Historical Provider LAB BLOOD ORDERABLES Allyson moore Result from Last 3 Months Insurance [facility] [employer] 3 Care Teams Store Specialist Relationship Specialty Start Date End Date Alexandra Morgan MD [address] [place] [phone] PCP - General Family Medicine 01/09/22
--- OUTSIDE RECORDS SUMMARY | 2025-01-03 15:57 | XMS_ITS | Encounter Summary ---
Author Organization [facility] Address [address] [facility] 7t [place] [address] Care Team Providers Care Mold Tooler Name Role Phone Alexandra Morgan MD Primary Care Provider [phone] Reason for Visit * Reason Comments Med Refill Encounter Details Date Type Department Care Team (Late st Contact Info) Description 01/22/2023 Refill [facility] [address] [place] [phone] Alexandra Morgan MD [address] [place] [phone] On pre-exposure prophylaxis for HIV Social History [...] Description 01/24/2025 9:30 AM EDT Clinical Support [facility] [address] [place] [phone] documented as of this encounter Visit Diagnoses Diagnosis On pre-exposure prophylaxis for HIV documented in this encounter Care Teams Mold Tooler Relationship Specialty Start Date End Date Alexandra Morgan MD [address] [place] [address] PCP - General Family Medicine 01/09/22 documented as of this encounter
--- OUTSIDE RECORDS SUMMARY | 2025-01-03 15:57 | XMS_ITS | Encounter Summary ---
Author Organization [employer] [facility] Address [address] [facility] 7t [place] [address] Care Team Providers Care Insole Channeler Name Role Phone Alexandra Morgan MD Primary Care Provider [phone] Reason for Referral * Imaging (Routine) - Closed Specialty Diagnoses / Procedures Referred By Shea pablo Referred To Contact Radiology Diagnoses Transaminitis Procedures US Abdomen Complete Alexandra Morgan MD [address] [place] [address] Phone: tel: fax: [address] Phone: tel: fax: Referral ID Status Reason Start Date Expiration Date Visits Re quested Visits Authorized [id number] Closed 04/28/2024 04/28/2025 1 1 Encounter Details Date Type Department Care Team (Late st Contact Info) Description 04/28/2024 Orders Only [facility] [address] [place], [place] [phone] Alexandra Morgan MD [address] [place], [place] [phone] Transaminitis (Primary Dx) Social History Tobacco Use Types Packs/Day Years Used Date Smoking Tobacco: Never Passive Smoke Exposure: Never Smokeless Tobacco: Never Alcohol Use Standard Drinks/Week Comments Never 0 (1 standard drink = 0.6 oz pur e alcohol) Housing Stability Answer Date Recorded What is your housing situation today? I have laramindy pierce 06/29/[address] you [...] [facility] [address] [place] [address] [phone] Scheduled Orders Name Type Priority Associated Diagnoses Orde r Schedule Helicobacter pylori Antigen, EIA, Stool Lab Routine Transaminitis Expected: 04/28/2024 (Approximate), Expires: 04/28/2025 documented as of this encounter Procedures Procedure Name Priority Date/Time Associated Diagnosis Comments US ABDOMEN COMPLETE Routine 05/31/2024 1 0:44 AM EST Transaminitis documented in this encounter Results * US Abdomen Complete (05/31/2024 10:44 AM EST) Anatomical Region Laterality Modality Abdomen Ultrasound 05/31/2024 10:4 4 AM EST Narrative 05/31/2024 10:46 AM EST [address] [address] Ultrasound Report Signed Patient: Leonid Jimenes I MR#: [id number] : 1990 Acct:[id number] Age/Sex: 33 / M ADM Date: 05/30/24 Loc: HO.US Attending Dr: Alexandra Morgan MD Ordering Physician: Alexandra Morgan MD Date of Service: 05/30/24 Procedure(s): US abdomen complete Accession Number(s): [id number] cc: Daniel House MD; Alexandra Morgan MD CLINICAL HISTORY: transaminitis US abdomen complete Comparison: None Findings: The visualized pancreas is normal. The aorta and inferior vena cava are normal caliber. The liver is normal in size and increased in echotexture with likely fatty sparing adjacent to the gallbladder. There is no intrahepatic bile duct dilatation. The common duct is 5 mm in diameter. The gallbladder is normal. There is no sonographic Cobb sign. The main portal vein is antegrade. The right kidney is 10.1 cm in length. The left kidney is 10.5 cm in length. The spleen is normal. No ascites. IMPRESSION: 1. increased hepatic echogenicity may indicate steatosis. This document has been electronically signed by: Henry Landaverde MD on 05/31/2024 10:44:55 Dictated By: Henry Landaverde MD Signed By: <Electronically signed by Henry Landaverde MD in [place]> 05/31/24 1045 DD/ 1044 TD/TT: 05/31/24 104 General Duty Nurse: Procedure Note Donotuseinterpreter, Image - 05/31/2024 [place] [address] Ultrasound Report Signed Patient: Leonid Jimenes [facility]#: [id number] : 1990Acct:[id number] Age/Sex: 33 / MADM Date: 05/30/24 Loc: HO.US Attending Dr: Alexandra Morgan MD Ordering Physician: Alexandra Morgan MD Date of Service: 05/30/24 Procedure(s): US abdomen complete Accession Number(s): [id number] cc: Daniel House MD; Alexandra Morgan MD CLINICAL HISTORY: transaminitis US abdomen complete Comparison: None Findings: The visualized pancreas is normal. The aorta and inferior vena cava are normal caliber. The liver is normal in size and increased in echotexture with likely fatty sparing adjacent to the gallbladder. There is no intrahepatic bile duct dilatation. The common duct is 5 mm in diameter. The gallbladder is normal. There is no sonographic Cbob sign. The main portal vein is antegrade. The right kidney is 10.1 cm in length. The left kidney is 10.5 cm in length. The spleen is normal. No ascites. IMPRESSION: 1. increased hepatic echogenicity may indicate steatosis. This document has been electronically signed by: Henry Landaverde MD on 05/31/2024 10:44:55 Dictated By: Henry Landaverde MD Signed By: <Electronically signed by Henry Landaverde MD in [place]> 05/31/24 1045 DD/ 1044 TD/TT: 05/31/24 1044 General Duty Nurse: us Alexandra Morgan MD IMG US PROCEDURES Final Result documented in this encounter Visit Diagnoses Diagnosis Transaminitis- Primary Nonspecific elevation of levels of transaminase or lactic acid dehydrogenase (LDH) documented in this encounter Care Teams Insole Channeler Relationship Specialty Start Date End Date Alexandra Morgan MD [address] [place] [id number] PCP - General Family Medicine 01/09/22 documented as of this encounter
--- OUTSIDE RECORDS SUMMARY | 2025-01-03 15:57 | XMS_ITS | Encounter Summary ---
Author Organization [employer] Address [address] [facility] 7t [place] [address] Care Team Providers Care Floor Space Allocator Name Role Phone Alexandra Morgan MD Primary Care Provider [phone] Encounter Details Date Type Department Care Team (Late st Contact Info) Description 11/05/2023 Orders Only [facility] [address] [employer] [place], [place] [phone] Alexandra Morgan MD [address] [place], [place] [phone] On pre-exposure prophylaxis for HIV Social History [...] Description 01/24/2025 9:30 AM EDT Clinical Support [facility] [address] [place] [address] documented as of this encounter Visit Diagnoses Diagnosis On pre-exposure prophylaxis for HIV documented in this encounter Care Teams Floor Space Allocator Relationship Specialty Start Date End Date Alexandra Morgan MD [address] [place] [address] PCP - General Family Medicine 01/09/22 documented as of this encounter
--- OUTSIDE RECORDS SUMMARY | 2025-01-03 15:57 | XMS_ITS | Encounter Summary ---
Author Organization [facility] Address [address] 7[address] [place] [address] Care Team Providers Care Agriculture Laboratory Technician Name Role Phone Alexandra Morgan MD Primary Care Provider [phone] Encounter Details Date Type Department Care Team (Late st Contact Info) Description 01/28/2024 Orders Only [facility] [address] [place], [place] [phone] Alexandra Morgan MD [address] [place], [place] [phone] On pre-exposure prophylaxis for HIV (Primary Dx) [...] Description 01/24/2025 9:30 AM EDT Clinical Support [facility] [address] [place] [address] documented as of this encounter Visit Diagnoses Diagnosis On pre-exposure prophylaxis for HIV- Primary documented in this encounter Care Teams Agriculture Laboratory Technician Relationship Specialty Start Date End Date Alexandra Morgan MD [address] [place] [address] PCP - General Family Medicine 01/09/22 documented as of this encounter
--- OUTSIDE RECORDS SUMMARY | 2025-01-03 15:57 | XMS_ITS | Encounter Summary ---
Author Organization [employer] [facility] Address [address] [facility] [address] [facility] [address] [facility] [address] 7[address] [place] [address] Care Team Providers Care Meat Specialist Name Role Phone Alexandra Morgan MD Primary Care Provider [phone] Encounter Details Date Type Department Care Team (Late st Contact Info) Description 04/20/2024 Orders Only [facility] [address] [place] [address] Marissa Alva RN [address] [place] [address] Screening for STD (sexually transmitted disease) Social [...] AM EDT Clinical Support [facility] [address] [place] [address] Scheduled Orders Name Type Priority Associated Diagnoses Orde r Schedule HIV-1/2 Antigen and Antibodies, Fourth Generation, with Reflexes Lab Routine Screening for STD (sexually transmitted disease) Expected: 04/20/2024 (Approximate), Expires: 04/20/2025 RPR (Monitor) with Reflex to Titer Lab Routine Screening for STD (sexually transmitted disease) Expected: 04/20/2024 (Approximate), Expires: 04/20/2025 Hepatitis C Viral RNA, Quantitative, Real-Time PCR Lab Routine Screening for STD (sexually transmitted disease) Expected: 04/20/2024 (Approximate), Expires: 04/20/2025 documented as of this encounter Visit Diagnoses Diagnosis Screening for STD (sexually transmitted disease) documented in this encounter Care Teams Meat Specialist Relationship Specialty Start Date End Date Alexandra Morgan MD [address] [place] [address] PCP - General Family Medicine 01/09/22 documented as of this encounter
[2025-01-03 16:13] LABS: MANUAL DIFF FLAG NO
[2025-01-03 16:24] LABS: Hematocrit 45.1 % (42.0-52.0); Hemoglobin 15.1 g/dl (14.0-18.0); Imm Gran Abs Auto 0.01 X10*3/uL (0.00-0.03); Imm Gran Pct Auto 0.2 % (0.0-0.4); Lymphocytes Absolute Auto 2.4 X10*3/uL (1.2-4.9); Mean Corpuscular HGB Conc 33.5 g/dl (31.0-36.0); Mean Corpuscular Hemoglobin 29.6 pg (27.0-33.0); Mean Corpuscular Volume 88.4 fL (80.0-98.0); NRBC Abs Auto 0.000 X10*3/uL (0.0-0.012); NRBC Pct Auto 0.0 /100WBC (0.0-0.2); Platelet Count 352 X10*3/uL (160-400); Red Blood Count 5.10 X10*6/uL (4.60-5.80); White Blood Count 5.5 X10*3/uL (4.8-10.8)
[2025-01-03 16:45] LABS: Alanine Aminotransferase 128 U/L (0-40); Albumin Level 4.6 g/dL (3.5-5.0); Alkaline Phosphatase 75 U/L (39-117); Anion Gap 12 (12-20); Aspartate Amino Transferase 50 U/L (5-37); Blood Urea Nitrogen 13 mg/dL (9-16); Calcium 9.4 mg/dL (8.4-10.2); Carbon Dioxide 28 mmol/L (22-29); Chloride 104 mmol/L (96-108); Cholesterol 312 mg/dL (<200); Estimated Glomerular Filt Rate > 60; HDL Cholesterol 51 mg/dL (>40); Potassium 4.0 mmol/L (3.3-5.1); Sodium 140 mmol/L (135-145); Total Protein 7.5 g/dL (6.5-8.0); Triglycerides 287 mg/dL (<150)
[2025-01-03 17:44] LABS: Reflex LDLD? No
== END 2025-01-03 14:42 | disposition home or self-care (01) ==
LOC: HO.HHCL 14:41
PROVIDERS: PCP Family Medicine; Visit Provider Family Medicine
DX: E78.2 Mixed hyperlipidemia (principal); R53.83 Other fatigue
CPT/HCPCS: 36415; 80053; 80061; 84443; 85025